=== PATIENT | male | born 1965 | race Caucasian/White ===

== ENCOUNTER 2016-07-19 18:36 | Emergency (ER) | payer BC ==
[~2016-07-19] VITALS: Wt 81.6 kg
[~2016-07-19 18:36] MED LIST: AMOXICILLIN500 MG PO; FLEXERIL10 MG PO; KEFLEX500 MG PO; MOTRIN800 MG PO; NAPROSYN500 MG PO; NKHM; OMNICEF300 MG PO; PREDNICOT20 MG PO; ROBITUSSIN-AC 160 ML PO; TOBRADEX 0.1%-0.5 ML OPH; VOLTAREN50 MG PO
[2016-07-19] MEDS ORDERED: CYCLOBENZAPRINE10 MG PO (20:59)
[2016-07-19] MEDS ORDERED: MEDROL DOSEPAK4 MG PO (20:59)
[2016-07-19] MEDS ORDERED: NAPROSYN500 MG PO (20:59)
== END 2016-07-19 20:36 | disposition home or self-care (01) ==
LOC: ED 18:36
DX: S40.011A Contusion of right shoulder, initial encounter (principal); M19.90 Unspecified osteoarthritis, unspecified site; Z98.890 Other specified postprocedural states; W00.0XXA Fall on same level due to ice and snow, initial encounter; Y93.89 Activity, other specified; Y92.89 Other specified places as the place of occurrence of the external cause; Y99.9 Unspecified external cause status

== ENCOUNTER → 2025-01-30 | Outpatient (CLI) | payer BC ==
[~2025-01-30] MED LIST changes: +CYCLOBENZAPRINE10 MG PO; +MEDROL DOSEPAK4 MG PO
== END | disposition home or self-care (01) ==
LOC: RAD 13:09
PROVIDERS: ATTEND Nurse Practitioner Family
DX: M54.9 Dorsalgia, unspecified (principal)